=== PATIENT | male | born 1980 | race Caucasian/White ===

== ENCOUNTER 2019-10-08 17:42 | Emergency (ER) | payer MEDICAID ==
[~2019-10-08] VITALS: Ht 180.3 cm; Wt 84.1 kg
[2019-10-08 17:46] VITALS: Ht 180.3 cm; Wt 84.1 kg
[2019-10-08] MEDS ORDERED: LISINOPRIL10 MG PO (17:48)
[2019-10-08] MEDS ORDERED: NEURONTIN 300300 MG PO (17:48)
[2019-10-08] MEDS ORDERED: BACLOFEN10 MG PO (17:49)
[2019-10-08] MEDS ORDERED: VOLTAREN75 MG PO (20:56)
[2019-10-08] MEDS ORDERED: CYCLOBENZAPRINE10 MG PO (20:56)
[2019-10-08 22:49] VITALS: BP 131/84
== END 2019-10-08 22:00 | disposition home or self-care (01) ==
LOC: D.ER 17:42
DX: S16.1XXA Strain of muscle, fascia and tendon at neck level, initial encounter (principal); R51 Headache; M79.10 Myalgia, unspecified site; W19.XXXA Unspecified fall, initial encounter; Y93.9 Activity, unspecified; Y92.9 Unspecified place or not applicable

== ENCOUNTER 2020-07-10 12:40 | Emergency (ER) | payer BC ==
[~2020-07-10] VITALS: Ht 180.3 cm; Wt 81.8 kg
[~2020-07-10 12:40] MED LIST: BACLOFEN10 MG PO; CYCLOBENZAPRINE10 MG PO; LISINOPRIL10 MG PO; NEURONTIN 300300 MG PO; VOLTAREN75 MG PO
[2020-07-10 12:44] VITALS: Ht 180.3 cm; Wt 81.8 kg
[2020-07-10 13:05] LABS: BASOPHILS 0.9 % (0-2); EOSINOPHILS 1.4 % (0-7); HEMATOCRIT 42.1 % (42.0-54.0); HEMOGLOBIN 14.6 g/dL (13.5-17.5); IMMATURE GRANULOCYTES 0.1 % (0-5); LYMPHOCYTE ABS# 2.71 10x3/uL (1.32-3.57); LYMPHOCYTES 38.9 % (15-50); MCH 29.8 pg (26.0-34.0); MCHC 34.7 g/dL (31.0-37.0); MCV 85.9 fL (80.0-100.0); MEAN PLATELET VOLUME 9.1 fL (7.4-10.4); MONOCYTES 5.9 % (2-11); NEUTROPHIL ABS# 3.67 10x3/uL (1.78-5.38); NEUTROPHILS 52.8 % (40-80); PLATELET COUNT 338 10x3/uL (130-400); RDW 13.1 % (11.5-14.5)
[2020-07-10 13:06] LABS: BILIRUBIN NEGATIVE (NEGATIVE); KETONE NEGATIVE (NEGATIVE); NITRITE NEGATIVE (NEGATIVE); UROBILINOGEN NORMAL mg/dL (< 2)
[2020-07-10 13:17] LABS: CALC OSMOLALITY 283 mosm/kg (275-300); CALCIUM 9.7 mg/dL (8.5-10.1); CARBON DIOXIDE 29.2 mmol/L (21.0-32.0); CHLORIDE - SERUM 104 mmol/L (98-107); CREATININE - SERUM 1.3 mg/dL (0.6-1.3); GLUCOSE 141 mg/dL (74-106); POTASSIUM - SERUM 3.7 mmol/L (3.5-5.1); SODIUM 142 mmol/L (136-145); UDS - AMPHET POSITIVE QUAL (NEGATIVE); UDS - BARB NEGATIVE QUAL (NEGATIVE); UDS - BENZO NEGATIVE QUAL (NEGATIVE); UDS - COCAINE NEGATIVE QUAL (NEGATIVE); UDS - OPIATE NEGATIVE QUAL (NEGATIVE); UDS - PCP NEGATIVE QUAL (NEGATIVE); UDS - THC POSITIVE QUAL (NEGATIVE); UREA NITROGEN 11 mg/dL (7-18); eGFR NON AFRICAN AMERICAN 65 mL/min (90-120)
[2020-07-10 13:23] LABS: ALBUMIN 4.4 g/dL (3.4-5.0); ALKALINE PHOSPHATASE 77 U/L (30-120); ALT (SGPT) 25 U/L (10-68); MAGNESIUM - SERUM 2.2 mg/dL (1.8-2.4); PROTEIN - SERUM 7.3 g/dL (6.4-8.2)
[2020-07-10 13:24] LABS: ACETAMINOPHEN < 10.0 ug/mL (10.0-30.0)
[2020-07-10 14:12] LABS: SARS-CoV-2 ANTIGEN NEGATIVE- SARS-COV-2 (NEGATIVE)
--- NOTE | 2020-07-10 14:48 | NUR ---
this nurse attempted to do SI assessment unable to do so with pt being sedated. Will attempt a assessment at a later time.
[2020-07-10 16:33] VITALS: BP 138/89
== END 2020-07-10 17:24 ==
LOC: D.ER 12:40
PROVIDERS: Family Medicine
DX: R45.851 Suicidal ideations (principal); R45.850 Homicidal ideations

== ENCOUNTER 2020-07-23 14:03 | Emergency (ER) | payer BC ==
[~2020-07-23] VITALS: Ht 180.3 cm; Wt 84.1 kg
[2020-07-23 14:06] VITALS: BP 137/78; Ht 180.3 cm; Wt 84.1 kg
[2020-07-23 14:40] LABS: UDS - AMPHET NEGATIVE QUAL (NEGATIVE); UDS - BARB NEGATIVE QUAL (NEGATIVE); UDS - BENZO NEGATIVE QUAL (NEGATIVE); UDS - COCAINE NEGATIVE QUAL (NEGATIVE); UDS - OPIATE NEGATIVE QUAL (NEGATIVE); UDS - PCP NEGATIVE QUAL (NEGATIVE); UDS - THC NEGATIVE QUAL (NEGATIVE)
[2020-07-23 14:40] LABS: BASOPHILS 0.6 % (0-2); HEMATOCRIT 35.9 % (42.0-54.0); HEMOGLOBIN 12.2 g/dL (13.5-17.5); IMMATURE GRANULOCYTES 0.2 % (0-5); LYMPHOCYTE ABS# 2.39 10x3/uL (1.32-3.57); LYMPHOCYTES 44.2 % (15-50); MCH 29.1 pg (26.0-34.0); MCV 85.7 fL (80.0-100.0); MEAN PLATELET VOLUME 9.5 fL (7.4-10.4); MONOCYTES 6.3 % (2-11); NEUTROPHIL ABS# 2.53 10x3/uL (1.78-5.38); NEUTROPHILS 46.7 % (40-80); RBC 4.19 10x6/uL (4.20-6.10); RDW 12.3 % (11.5-14.5); WBC 5.4 10x3/uL (4.8-10.8)
[2020-07-23 14:41] LABS: PLATELET COUNT 191 10x3/uL (130-400)
[2020-07-23 14:51] LABS: CALC OSMOLALITY 283 mosm/kg (275-300); CALCIUM 8.9 mg/dL (8.5-10.1); CARBON DIOXIDE 28.8 mmol/L (21.0-32.0); CHLORIDE - SERUM 105 mmol/L (98-107); CREATININE - SERUM 1.1 mg/dL (0.6-1.3); GLUCOSE 120 mg/dL (74-106); SODIUM 143 mmol/L (136-145); UREA NITROGEN 8 mg/dL (7-18); eGFR NON AFRICAN AMERICAN 78 mL/min (90-120)
[2020-07-23 14:56] LABS: ALBUMIN 3.5 g/dL (3.4-5.0); ALKALINE PHOSPHATASE 71 U/L (30-120); ALT (SGPT) 23 U/L (10-68); BILIRUBIN - TOTAL 0.18 mg/dL (0.2-1.3); MAGNESIUM - SERUM 1.7 mg/dL (1.8-2.4); PROTEIN - SERUM 6.2 g/dL (6.4-8.2)
--- NOTE | 2020-07-23 14:58 | NUR ---
PT ASSESSED A MODERATE RISK PER ASSESSMENT. PT WAS RECENTLY RELEASED FROM [facility] ON SUNDAY. PT HAS NOT HAD SOME OF HIS MEDICATIONS SINCE . AFTER HE REPORTS THEY WERE STOLEN. PT HAS NO PLAN BUT SAYS HE WOULD RATHER KILL HIMSELF THAN GO TO [facility] FOR KILLING SOMEONE ELSE. NO PREVIOUS ATTEMPTS OF SUICIDE. PT HAS A DIAGNOSIS OF BIPOLAR, PARANOID SCHIZOPHRENIA, AND DEPRESSION. RESOURCES GIVEN. PT HAS ALSO BEEN TO [facility] IN PREVIOUS ADMISSIONS. PT IS IN A SAFE ROOM AND BEING MONITORED BY [facility] VIA ED STAFF.
[2020-07-23 15:01] LABS: BILIRUBIN NEGATIVE (NEGATIVE); KETONE NEGATIVE (NEGATIVE); NITRITE NEGATIVE (NEGATIVE); UROBILINOGEN NORMAL mg/dL (< 2)
[2020-07-23 15:04] LABS: ACETAMINOPHEN < 10.0 ug/mL (10.0-30.0)
[2020-07-23 15:06] LABS: ALCOHOL - BLOOD (MEDICAL) < 1.0 mg/dL (0.0-10.0)
[2020-07-23 15:07] LABS: SARS-CoV-2 ANTIGEN NEGATIVE- SARS-COV-2 (NEGATIVE)
== END 2020-07-23 17:39 ==
LOC: D.ER 14:03
PROVIDERS: Family Medicine
DX: R45.851 Suicidal ideations (principal); R45.850 Homicidal ideations

== ENCOUNTER 2020-07-30 14:23 | Emergency (ER) | payer BC ==
[~2020-07-30] VITALS: Ht 180.3 cm; Wt 72.7 kg
[2020-07-30 14:44] VITALS: Ht 180.3 cm; Wt 72.7 kg
[2020-07-30 15:05] LABS: BASOPHILS 1.4 % (0-2); EOSINOPHILS 2.4 % (0-7); HEMATOCRIT 40.2 % (42.0-54.0); HEMOGLOBIN 13.7 g/dL (13.5-17.5); MCH 29.2 pg (26.0-34.0); MCV 85.7 fL (80.0-100.0); MEAN PLATELET VOLUME 7.3 fL (7.4-10.4); MONOCYTES 7.4 % (2-11); NEUTROPHILS 48.8 % (40-80); RBC 4.69 10x6/uL (4.20-6.10); RDW 13.7 % (11.5-14.5); WBC 6.8 10x3/uL (4.8-10.8)
[2020-07-30 15:06] LABS: PLATELET COUNT 263 10x3/uL (130-400)
[2020-07-30 15:19] LABS: ANION GAP 8.3 mmol/L (8-16); CALCIUM 8.8 mg/dL (8.5-10.1); CARBON DIOXIDE 33.3 mmol/L (21.0-32.0); CREATININE - SERUM 1.4 mg/dL (0.6-1.3); POTASSIUM - SERUM 4.6 mmol/L (3.5-5.1)
[2020-07-30 15:27] LABS: ALBUMIN 3.8 g/dL (3.4-5.0); BILIRUBIN - TOTAL 0.16 mg/dL (0.2-1.3); MAGNESIUM - SERUM 1.9 mg/dL (1.8-2.4); PROTEIN - SERUM 6.7 g/dL (6.4-8.2)
[2020-07-30 15:31] LABS: BILIRUBIN NEGATIVE (NEGATIVE); KETONE NEGATIVE (NEGATIVE); NITRITE NEGATIVE (NEGATIVE); UROBILINOGEN NORMAL mg/dL (< 2)
[2020-07-30 15:39] LABS: UDS - AMPHET NEGATIVE QUAL (NEGATIVE); UDS - BARB NEGATIVE QUAL (NEGATIVE); UDS - BENZO NEGATIVE QUAL (NEGATIVE); UDS - COCAINE NEGATIVE QUAL (NEGATIVE); UDS - OPIATE NEGATIVE QUAL (NEGATIVE); UDS - PCP NEGATIVE QUAL (NEGATIVE); UDS - THC NEGATIVE QUAL (NEGATIVE)
--- NOTE | 2020-07-30 16:32 | NUR ---
Per risk assessment and observation, patient scores a low risk assessment as he told this nurse he had been in [facility] and recently was dc'd and he felt like he wasn't ready and came here for further placement. Per charge nurse Ginger she felt like he was more suicidal as he told her he "felt like walking into the highway in front of something". Will place on suicide risk precautions at this time and will wait for Dr. Adams to decide further needs.
[2020-07-30] MEDS ORDERED: CIPRODEX OTIC7.5 ML LEFT EAR (20:01)
[2020-07-30 20:35] LABS: SARS-CoV-2 ANTIGEN NEGATIVE- SARS-COV-2 (NEGATIVE)
[2020-07-31 04:04] VITALS: BP 127/72
== END 2020-07-31 04:04 ==
LOC: D.ER 14:23
PROVIDERS: Emergency Medicine
DX: R45.851 Suicidal ideations (principal); M25.512 Pain in left shoulder; M71.9 Bursopathy, unspecified; T16.2XXA Foreign body in left ear, initial encounter

== ENCOUNTER 2020-08-04 19:46 | Emergency (ER) | payer BC ==
[~2020-08-04] VITALS: Ht 180.3 cm; Wt 2.7 kg
[~2020-08-04 19:46] MED LIST changes: +CIPRODEX OTIC7.5 ML LEFT EAR
[2020-08-04 19:53] VITALS: BP 131/84; Ht 180.3 cm; Wt 2.7 kg
[2020-08-04] MEDS ORDERED: CYMBALTA60 MG PO (20:00)
[2020-08-04] MEDS ORDERED: NEURONTIN800 MG PO (20:00)
[2020-08-04] MEDS ORDERED: TRAMADOL HCL E100 M1 PO (20:00)
[2020-08-04] MEDS ORDERED: THORAZINE50 MG PO (20:01)
[2020-08-04 20:17] LABS: KETONE NEGATIVE (NEGATIVE); NITRITE NEGATIVE (NEGATIVE)
[2020-08-04 20:18] LABS: BILIRUBIN NEGATIVE (NEGATIVE); UROBILINOGEN NORMAL mg/dL (< 2); WHITE CELLS - URINE 0-5 HPF (0-1)
[2020-08-04 20:19] LABS: BASOPHILS 1.3 % (0-2); EOSINOPHILS 2.1 % (0-7); HEMOGLOBIN 14.2 g/dL (13.5-17.5); LYMPHOCYTES 35.1 % (15-50); MCHC 34.5 g/dL (31.0-37.0); MCV 84.1 fL (80.0-100.0); MEAN PLATELET VOLUME 7.1 fL (7.4-10.4); MONOCYTES 6.9 % (2-11); NEUTROPHILS 54.6 % (40-80); PLATELET COUNT 298 10x3/uL (130-400); RBC 4.88 10x6/uL (4.20-6.10); RDW 13.2 % (11.5-14.5); WBC 8.5 10x3/uL (4.8-10.8)
[2020-08-04 20:20] LABS: UDS - AMPHET NEGATIVE QUAL (NEGATIVE); UDS - BARB NEGATIVE QUAL (NEGATIVE); UDS - BENZO NEGATIVE QUAL (NEGATIVE); UDS - COCAINE NEGATIVE QUAL (NEGATIVE); UDS - OPIATE NEGATIVE QUAL (NEGATIVE); UDS - PCP NEGATIVE QUAL (NEGATIVE); UDS - THC NEGATIVE QUAL (NEGATIVE)
[2020-08-04 20:27] LABS: ANION GAP 12.8 mmol/L (8-16); CALCIUM 9.6 mg/dL (8.5-10.1); CARBON DIOXIDE 30.2 mmol/L (21.0-32.0); CREATININE - SERUM 1.2 mg/dL (0.6-1.3)
[2020-08-04 20:33] LABS: ALBUMIN 4.3 g/dL (3.4-5.0); BILIRUBIN - TOTAL 0.22 mg/dL (0.2-1.3); MAGNESIUM - SERUM 1.9 mg/dL (1.8-2.4); PROTEIN - SERUM 7.6 g/dL (6.4-8.2)
--- NOTE | 2020-08-04 21:06 | NUR ---
DR WATTS NOTIFIED AND REVIEWED PT's BEHAVIOR AND ASSESSMENT RESULTS. PT IS A LOW RISK PER DR WTATS. DR WATTS STATED TO GIVE RESOURCES TO PT AT TIME OF DISCHARGE. NO FURTHER ORDEERS AT THIS TIME. RESOURCES REVIEWED WITH PT AND HE VERBALIZED UNDERSTANDING.
== END 2020-08-04 23:06 | disposition home or self-care (01) ==
LOC: D.ER 19:46
PROVIDERS: Family Medicine
DX: T16.1XXA Foreign body in right ear, initial encounter (principal); F31.9 Bipolar disorder, unspecified; F20.9 Schizophrenia, unspecified; R45.850 Homicidal ideations; X58.XXXA Exposure to other specified factors, initial encounter